=== PATIENT | female | born 1975 | race Caucasian/White ===

== ENCOUNTER 2019-12-03 08:00 | Outpatient (NON) | payer OTHER, SELFPAY ==
[2019-12-03 19:19] LABS: SARS-CoV-2 RNA PCR Negative
== END 2019-12-03 08:01 ==
PROVIDERS: PCP Family Medicine; Visit Provider Family Medicine
DX: R09.89 Other specified symptoms and signs involving the circulatory and respiratory systems (principal); Z20.828 Contact with and (suspected) exposure to other viral communicable diseases
CPT/HCPCS: 87635; C9803; U0003

== ENCOUNTER 2020-07-07 06:54 | Outpatient (NON) | payer OTHER, SELFPAY ==
[2020-07-07 20:32] LABS: SARS-CoV-2 RNA PCR Negative
== END 2020-07-07 06:55 ==
PROVIDERS: PCP Family Medicine; Visit Provider Family Medicine
DX: R68.89 Other general symptoms and signs (principal); Z20.822 Contact with and (suspected) exposure to COVID-19
CPT/HCPCS: C9803; U0003; U0005